=== PATIENT | male | born 1980 | race Two or more races ===

== ENCOUNTER 2019-01-20 09:42 | Emergency (ER) | payer SELFPAY ==
[~2019-01-20] VITALS: Ht 170.2 cm; Wt 89.8 kg
[2019-01-20 09:48] VITALS: BP 120/79
== END 2019-01-20 11:44 | disposition home or self-care (01) ==
LOC: ER 09:42
DX: J20.9 Acute bronchitis, unspecified (principal); J02.9 Acute pharyngitis, unspecified
CPT/HCPCS: 71046